=== PATIENT | male | born 1990 | race Caucasian/White ===

== ENCOUNTER 2022-01-09 17:20 | Emergency (ER) | payer OTHER ==
[2022-01-09 18:46] LABS: BASOPHIL 0.6 % (0-2); EOSINOPHIL 0.7 % (0-5); HCT 47.7 % (42.0-52.0); HGB 16.1 g/dl (13.2-18.0); LYMPHOCYTE 26.6 % (15-48); MCH 27.8 pg (25.0-31.0); MCHC 33.8 g/dL (32.0-36.0); MCV 82.2 fL (78.0-100.0); MONOCYTE 6.9 % (0-12); MPV 11.1 fL (6.0-9.5); NEUTROPHIL 65.1 % (41-80); NRBC 0; PLT 203 K/uL (150-400); RDW 13.5 % (11.5-14.0); WBC 9.1 K/uL (4.0-10.5)
[2022-01-09 19:16] LABS: ALBUMIN 4.3 g/dL (3.4-5.0); ALKALINE PHOSHATASE 96 U/L (46-116); ALT 28 U/L (16-63); AST 18 U/L (15-37); BILIRUBIN - TOTAL 0.4 mg/dL (0.2-1.0); BUN 13 mg/dL (7-18); BUN/CREAT RATIO (CALC) 17.6 RATIO; CHLORIDE 108 mmol/L (98-107); CO2 (BICARBONATE) 22 mmol/L (21-32); CREATININE 0.74 mg/dL (0.67-1.17); GLOBULIN (CALCULATION) 3.3 g/dL; GLUCOSE 83 mg/dL (74-106); POTASSIUM 3.7 mmol/L (3.5-5.1); TOTAL PROTEIN 7.6 g/dL (6.4-8.2)
[2022-01-09] MEDS ORDERED: AMOX TR-K CLV1 EAC4 PO (19:56)
== END 2022-01-09 20:25 | disposition home or self-care (01) ==
LOC: FER 17:20
PROVIDERS: Emergency Medicine
DX: R07.89 Other chest pain (principal); K08.89 Other specified disorders of teeth and supporting structures; J45.909 Unspecified asthma, uncomplicated; F17.210 Nicotine dependence, cigarettes, uncomplicated
CPT/HCPCS: 36415; 71046; 80053; 82553; 84443; 84484; 85025; 85379; G0480; Q0163